=== PATIENT | male | born 1965 | race Hispanic/Latino ===

== ENCOUNTER 2017-01-30 12:11 | Day surgery (SDC) | payer BC ==
[~2017-01-30] VITALS: Ht 172.7 cm; Wt 98.9 kg
[~2017-01-30 12:11] MED LIST: PERCOCET 5-3251 EACH PO; VALTREX1000 MG PO
--- NOTE | 2017-01-30 15:11 | NUR ---
AT 1400 AND 1500 WAS UPDATED WITH WAIT. NOT HAPPY BUT UNDERSTANDS. IV PATENT. DENIES NEEDS.
--- NOTE | 2017-01-30 17:07 | NUR ---
01/30/17 1706 [place] 4320-PATIENT ARRIVED TO PACU ON 2L NC O2 SAT 98% AWAKE DENIES PAIN OR NAUSEA. ENCOURAGED TO PASS FLATUS.
--- NOTE | 2017-01-31 09:37 | OR ---
[facility] [address], [place] [address] Signed DATE OF OPERATION: 01/30/2017 SURGEON: Max Hearn MD PREOPERATIVE DIAGNOSIS: Episodic rectal bleeding. POSTOPERATIVE DIAGNOSES: 1. Sigmoid diverticulosis. 2. Internal hemorrhoidal complex, not actively bleeding. 3. Two small polyps (hepatic flexure and proximal ascending colon). PROCEDURE: Total colonoscopy to cecum with cold morcellation polypectomy x2. ANESTHESIA: Intravenous sedation, Fentanyl 150 mcg, Versed 7 mg. INDICATION: This 51-year-old man has no primary physician, but is the brother of another of my patients who has recommended he be evaluated for his rectal bleeding. It is painless and episodic. He has had no weight loss or bone pain. He is admitted to undergo colonoscopy. He understands the risks of bleeding, infection, and perforation. FINDINGS: The prep was good. Complete colonoscopy was undertaken to the cecum. There were 2 small polyps, one in the proximal ascending colon and the other at the hepatic flexure. Both were excised. There were diverticular changes of the sigmoid and at least one complex of the anorectum that was consistent with internal hemorrhoidal change. Most likely that is the source of his bleeding. DESCRIPTION OF PROCEDURE: The patient was brought to the endoscopy suite and placed in lateral decubitus position, given intravenous sedation to the point of slurred speech and nystagmus. Digital rectal examination was normal. An Olympus video colonoscope was passed in the rectum and manipulated throughout the colon, ultimately intubating the cecum itself. The ileocecal valve was normal. The scope was withdrawn and in the proximal ascending colon, there was a small polyp that was probably hyperplastic. It was excised with cold morcellation technique. Further Electronically Signed By: MAX HEARN MD 01/31/17 0937 PATIENT NAME: TORIN TAFOYA OPERATIVE REPORT DATE OF : 65 PHYSICIAN: MAX HEARN MD REPORT #: [id number] REPORT IS CONFIDENTIAL AND NOT TO BE RELEASED WITHOUT AUTHORIZATION [facility] [address], [place] [address] Signed withdrawal of the scope showed another similar such polyp in the right transverse colon at the hepatic flexure. It too was excised with cold morcellation technique. Further withdrawal of scope showed no other abnormality until the sigmoid where there were numerous diverticula. Retroflexed view of the rectum showed at least one internal hemorrhoidal complex, likely the source of his bleeding, but no sign of active bleeding at this time. Retroflexed view confirmed this. The scope was removed, and the patient was taken to the recovery room in good condition. CONCLUDING DIAGNOSIS: Rectal bleeding, probably related to internal hemorrhoids. PLAN: Recommend high-fiber diet or Citrucel 1 tablespoon each day. If he has further bleeding, he can see me in the office and we will consider hemorrhoidal banding. MD BOOGIE Sanchez/FAIZA /[id number] Electronically Signed By: MAX HEARN MD 01/31/17 0937 PATIENT NAME: TORIN TAFOYA OPERATIVE REPORT DATE OF : 65 PHYSICIAN: MAX HEANR MD REPORT #: [id number] REPORT IS CONFIDENTIAL AND NOT TO BE RELEASED WITHOUT AUTHORIZATION
== END 2017-01-30 17:35 | disposition home or self-care (01) ==
LOC: OPS 12:11 → DS 12:11 → OPS 14:30 → DS 01-31 14:30 → OPS 01-31 14:30
PROVIDERS: Surgery
PROC: 0DBL8ZX Excision of Transverse Colon, Via Natural or Artificial Opening Endoscopic, Diagnostic (ICD-10-PCS; 2017-01-30)
PROC: 0DBM8ZX Excision of Descending Colon, Via Natural or Artificial Opening Endoscopic, Diagnostic (ICD-10-PCS; principal; 2017-01-30 13:00)
DX: K63.5 Polyp of colon (principal); D12.2 Benign neoplasm of ascending colon; K64.8 Other hemorrhoids; K57.30 Diverticulosis of large intestine without perforation or abscess without bleeding; Z98.890 Other specified postprocedural states
CPT/HCPCS: 99152; 99153; J2250; J3010; J7120